=== PATIENT | male | born 1985 | race Caucasian/White ===

== ENCOUNTER 2016-07-02 05:09 | Inpatient (IN) | payer MEDICAID ==
[~2016-07-02] VITALS: Ht 175.3 cm; Wt 81.7 kg
[2016-07-02] MEDS ORDERED: SODIUM CHLORIDE 0.9% 1,000 ML ONE ×2 (05:46→07:22)
[2016-07-02] MEDS ORDERED: KETOROLAC 30 MG/ML VIAL ONE (05:46)
[2016-07-02] MEDS ORDERED: ONDANSETRON 4 MG VIAL ONE ×3 (05:46→13:17)
[2016-07-02] MEDS ORDERED: MORPHINE 2 MG/ML SYR ONE (07:47)
[2016-07-02] MEDS: SODIUM CHLOR 0.9% W/KCL 20MEQ 1,000 ML IV SCH ×2 (11:52→19:27)
[2016-07-02 15:45] VITALS: BP_SYST 118; BP_SYST 120; BP_SYST 188; RESP 18; TEMP 98; Ht 175.3 cm; Wt 81.7 kg
[2016-07-02] MEDS: ACETAMINOPHEN 325 MG TAB PO PRN (16:20)
[2016-07-02] MEDS: DILAUDID 1 MG/ML AMP IV PRN ×3 (17:31→23:39)
[2016-07-02 19:24] VITALS: BP_SYST 120; RESP 20; TEMP 98
[2016-07-02] MEDS: ONDANSETRON 4 MG VIAL IV PUSH PRN (21:30)
[2016-07-02 22:58] VITALS: BP_SYST 127; RESP 20; TEMP 97.8
[2016-07-02] MEDS ORDERED: ALPRAZOLAM 0.25 MG TAB PO ONE (23:20)
[2016-07-02 23:52] VITALS: BP_SYST 134; RESP 20; TEMP 98
[2016-07-03] VITALS (8 sets, daily range): BP systolic 118–144; RESP 12–20; TEMP 97.8–99
[2016-07-03] MEDS: ACETAMINOPHEN 325 MG TAB PO PRN ×2 (03:26→22:42)
[2016-07-03] MEDS: ONDANSETRON 4 MG VIAL IV PUSH PRN ×2 (04:48→17:48)
[2016-07-03] MEDS: DILAUDID 1 MG/ML AMP IV PRN ×4 (04:50→21:33)
[2016-07-03] MEDS: SODIUM CHLOR 0.9% W/KCL 20MEQ 1,000 ML IV SCH (05:05)
[2016-07-03] MEDS ORDERED: PROMETHAZINE 25 MG SUPP RECTAL PRN (10:15)
[2016-07-03] MEDS: PROMETHAZINE 25 MG/ML VIAL IV PRN (10:54)
[2016-07-03] MEDS ORDERED: LIDOCAINE 2% SYR 5 ML IV ONE (11:31)
[2016-07-03] MEDS ORDERED: PROPOFOL 50ML PER ML IV ONE (11:31)
[2016-07-03] MEDS: DEXTROSE 5% SALINE 0.45% 1,000 ML IV SCH ×2 (12:27→18:46)
[2016-07-03] MEDS ORDERED: BISACODYL 10 MG SUPP RECTAL PRN (15:30)
[2016-07-04] MEDS: ONDANSETRON 4 MG VIAL IV PUSH PRN ×3 (00:11→15:18)
[2016-07-04] MEDS: DEXTROSE 5% SALINE 0.45% 1,000 ML IV SCH ×2 (01:19→15:18)
[2016-07-04] MEDS: DILAUDID 1 MG/ML AMP IV PRN (01:32)
[2016-07-04 03:07] VITALS: BP_SYST 130; RESP 20; TEMP 98
[2016-07-04] MEDS: ACETAMINOPHEN 325 MG TAB PO PRN (06:57)
[2016-07-04 07:20] VITALS: BP_SYST 130; RESP 20; TEMP 98.6
[2016-07-04 11:26] VITALS: BP_SYST 115; RESP 16; TEMP 98.9
[2016-07-04] MEDS: MORPHINE 5 MG/1 ML VIAL IV PRN ×3 (12:56→20:35)
[2016-07-04 15:04] VITALS: BP_SYST 116; RESP 16; TEMP 98.1
[2016-07-04] MEDS: PROMETHAZINE 25 MG/ML VIAL IV PRN (16:37)
[2016-07-04 20:23] VITALS: BP_SYST 125; RESP 16; TEMP 98.7
[2016-07-04 23:45] VITALS: BP_SYST 126; RESP 12; TEMP 98.6
[2016-07-05] MEDS: MORPHINE 5 MG/1 ML VIAL IV PRN ×6 (00:37→23:36)
[2016-07-05 04:07] VITALS: BP_SYST 132; RESP 20; TEMP 98.4
[2016-07-05] MEDS: DEXTROSE 5% SALINE 0.45% 1,000 ML IV SCH ×2 (04:52→15:11)
[2016-07-05] MEDS: PROMETHAZINE 25 MG/ML VIAL IV PRN (05:46)
[2016-07-05 07:28] VITALS: BP_SYST 112; RESP 16; TEMP 97.9
[2016-07-05] MEDS: FAMOTIDINE 20 MG TAB PO SCH ×3 (09:42→20:51)
[2016-07-05 11:15] VITALS: BP_SYST 124; RESP 12; TEMP 97.9
[2016-07-05 16:22] VITALS: BP_SYST 132; RESP 16; TEMP 98.3
[2016-07-05 19:30] VITALS: BP_SYST 133; RESP 16; TEMP 98.3
[2016-07-05 23:10] VITALS: BP_SYST 127; RESP 14; TEMP 98.9
[2016-07-06] VITALS (13 sets, daily range): BP systolic 106–135; RESP 16–22; TEMP 97.4–98.9
[2016-07-06] MEDS: PROMETHAZINE 25 MG/ML VIAL IV PRN (01:43)
[2016-07-06] MEDS: DEXTROSE 5% SALINE 0.45% 1,000 ML IV SCH ×3 (01:47→22:34)
[2016-07-06] MEDS: FAMOTIDINE 20 MG TAB PO SCH ×3 (09:00→20:07)
[2016-07-06] MEDS: ONDANSETRON 4 MG VIAL IV PUSH PRN ×2 (09:27→20:07)
[2016-07-06] MEDS: MORPHINE 5 MG/1 ML VIAL IV PRN ×4 (09:27→22:40)
[2016-07-06] MEDS ORDERED: LIDOCAINE 1% BUFFERED 1 ML SYR INTRADERM PRN (10:15)
[2016-07-06] MEDS ORDERED: LACT RINGERS 1,000 ML IV SCH (10:15)
[2016-07-06] MEDS ORDERED: PEG/E-LYTE 4,000 ML BTL PO ONE (13:00)
[2016-07-07] VITALS (17 sets, daily range): BP systolic 89–148; RESP 12–18; TEMP 96.5–98.3
[2016-07-07] MEDS: ONDANSETRON 4 MG VIAL IV PUSH PRN ×3 (01:29→22:38)
[2016-07-07] MEDS: MORPHINE 5 MG/1 ML VIAL IV PRN ×4 (02:47→22:38)
[2016-07-07] MEDS: FAMOTIDINE 20 MG TAB PO SCH ×3 (09:00→20:25)
[2016-07-07] MEDS: DEXTROSE 5% SALINE 0.45% 1,000 ML IV SCH (11:04)
[2016-07-07] MEDS ORDERED: PROPOFOL 50ML VIAL IV ONE (13:31)
[2016-07-07] MEDS ORDERED: LIDOCAINE 2% SYR 5 ML IV ONE (13:31)
[2016-07-08] VITALS (8 sets, daily range): BP systolic 137–140; RESP 12–18; TEMP 97.9–98.2
[2016-07-08] MEDS: ONDANSETRON 4 MG VIAL IV PUSH PRN ×2 (03:51→09:53)
[2016-07-08] MEDS: MORPHINE 5 MG/1 ML VIAL IV PRN ×2 (03:51→09:53)
[2016-07-08] MEDS: FAMOTIDINE 20 MG TAB PO SCH (09:04)
[2016-07-08] MEDS: DEXTROSE 5% SALINE 0.45% 1,000 ML IV SCH (09:08)
== END 2016-07-08 12:49 | disposition home or self-care (01) | DRG 684 ==
LOC: ENRESERVDT → ENRESERVTM → ER 05:09 → EMR 08:45 → 3NT 15:40 → ENPENDDIS 07-03 10:18 → OBSVTOIN 07-03 10:18
PROVIDERS: ADMIT Internal Medicine Nephrology; ATTEND Internal Medicine Nephrology
PROC: 0DB68ZX Excision of Stomach, Via Natural or Artificial Opening Endoscopic, Diagnostic (ICD-10-PCS; 2016-07-06)
PROC: 0DJD8ZZ Inspection of Lower Intestinal Tract, Via Natural or Artificial Opening Endoscopic (ICD-10-PCS; principal; 2016-07-07 11:55)
DX: N17.9 Acute kidney failure, unspecified (principal); E86.0 Dehydration; K58.9 Irritable bowel syndrome, unspecified; E83.59 Other disorders of calcium metabolism; N29 Other disorders of kidney and ureter in diseases classified elsewhere; K44.9 Diaphragmatic hernia without obstruction or gangrene; K64.8 Other hemorrhoids; F32.9 Major depressive disorder, single episode, unspecified; F41.1 Generalized anxiety disorder; K21.9 Gastro-esophageal reflux disease without esophagitis
CPT/HCPCS: 36415; 72148; 74176; 76705; 80048; 80053; 80069; 81001; 82164; 82306; 82542; 83690; 83970; 85025; 86403; 88305; 96361; 96374; 96375; 96376